=== PATIENT | female | born 1995 | race Caucasian/White ===

== ENCOUNTER 2023-05-01 22:22 | Inpatient (IN) | payer OTHER, SELFPAY ==
[2023-05-01] MEDS: OXYTOCIN 10 UNITS/ML VIAL (22:41)
[2023-05-01] MEDS: miSOPROStol 200 MCG TABLET 400 MCG SUBLINGUAL (22:45)
--- NOTE | 2023-05-01 22:56 | WPDOBADMIT ---
Obstetrics - Admit Note Admission Note: record reviewed. No pertinent additions to the history and/or any subsequent changes in the physical findings that are not consistent with the expected course of the were found. admit in active labor, SROM Additions to the history and/or subsequent changes in the physical findings follow. None.
--- NOTE | 2023-05-01 22:57 | PM.OBPRVD ---
OB - Delivery Note Procedure Delivery date: 05/01/23 Procedure: Induction method: None Delivery monitor: External FHT and External Uterine Route of delivery: Episiotomy description: None Laceration Description: None Specimen: Yes Quantitative Blood Loss (ml): 125 Anesthesia type: None Disposition: Floor [place] Baby Date of : 05/01/23 Time of : 22:39 Weeks of gestation at delivery: 37 gender: Male Weight (pounds): 6 Weight (ounces): 6 presentation: vertex position: Left Occiput Anterior Placenta delivery description: Spontaneous Cord Vessel Description: 3 Vessels and Clamped/Cut score one minute: 8 score five minutes: 9 Narrative: straight catheter urine obtained, sent for UDS
[2023-05-01 22:58] VITALS: BP 130/89; PULSE 84
[2023-05-01 23:00] VITALS: BP 139/83; PULSE 89
[2023-05-01 23:06] LABS: Basophils Absolute Auto 0.1 K/mm3 (0.0-0.1); Basophils Percent Auto 0.4 % (0.2-1.2); Eosinophils Absolute Auto 0.1 K/mm3 (0-0.3); Eosinophils Percent Auto 0.6 % (0-4.4); Hematocrit 35.1 % (37.0-47.0); Hemoglobin 11.4 g/dL (12.0-15.0); Immature Granulocyte Absolute 0.19 K/mm3 (0.00-0.031); Lymphocytes Absolute Auto 3.69 K/mm3 (0.9-3.2); Lymphocytes Percent Auto 19.7 % (18.3-44.2); Mean Corpuscular HGB Conc 32.5 g/dl (32-36); Mean Corpuscular Hemoglobin 28.5 pg (26-34); Mean Corpuscular Volume 87.8 fl (80-100); Mean Platelet Volume 9.4 fl (7.4-10.4); Monocytes Absolute Auto 1.4 K/mm3 (0.1-0.6); Monocytes Percent Auto 7.5 % (2.6-8.5); Neutrophils Absolute Auto 13.3 K/mm3 (1.3-6.7); Neutrophils Percent Auto 70.8 % (45.5-73.1); Platelet Count Result 300 k/mm3 (150-375); Red Cell Distribution Width 13.5 % (11.5-14.5); White Blood Count 18.7 K/mm3 (4.5-10.0)
[2023-05-01 23:15] VITALS: BP 133/81; PULSE 79
[2023-05-01 23:30] VITALS: BP 139/82; PULSE 82
[2023-05-01 23:35] LABS: Barbiturate Screen Urine Negative (Negative); Benzodiazepines Screen Urine Negative (Negative)
[2023-05-01 23:40] LABS: Amphetamine Screen Urine Negative (Negative); Methadone Screen Urine Negative (Negative); Opiate Screen Urine Negative (Negative); Phencyclidine Screen Urine Negative (Negative)
[2023-05-01 23:45] VITALS: BP 133/74; PULSE 57
[2023-05-01] MEDS: IBUPROFEN 600 MG TABLET PO (23:54)
[2023-05-01 23:57] VITALS: BMI 26.2
--- NOTE | 2023-05-01 23:58 | LDADM ---
This patient, Martha Rodriguez, was admitted to Labor/Delivery/Recovery 108 on 05/01/23 at 22:22. Plans for labor, pain management and were discussed with patient. Patient/family oriented to hospital policies and general routines including ID bracelet, bed and alarms, visiting hours, pain management, procedures, bathroom and other care routines, personal items, smoking policy, room service/diet and guest tray routines, infant security routines, and visiting hours. Patient/Family are encouraged to report perceived risks to care and to ask questions if they do not understand what they are told or what they should do. See OBIX for further documentation.
[2023-05-02] VITALS (13 sets, daily range): BP systolic 109–207; BP diastolic 57–174; PULSE 51–257; RESP 16–18; TEMP 36.7–37.3; O2SAT 97–99
[2023-05-02] MEDS: fentaNYL CITRATE INJ (*CRX) 100 MCG/2 ML VIAL 25 MCG IV PUSH
[2023-05-02 00:56] LABS: Cannabinoid Screen Urine Positive (Negative); Cocaine Screen Urine Negative (Negative)
[2023-05-02] MEDS: ACETAMINOPHEN 325 MG TABLET 650 MG PO ×2 (01:11→08:54)
--- NOTE | 2023-05-02 02:00 | OBPPTRN ---
Patient transferred to post room #287 via (wheelchair ). Support person present. Oriented to unit, room, information board, rooming in, admission packet and security measures. Patient verbalizes understanding.
[2023-05-02 05:20] LABS: Hematocrit 32.8 % (37.0-47.0); Hemoglobin 10.6 g/dL (12.0-15.0)
[2023-05-02 08:22] LABS: Hepatitis B Surface Antigen Negative (Negative)
[2023-05-02 08:39] LABS: HIV 1/2 Ab P24 Ag Result Negative (Negative); Hepatitis C Virus Antibody Negative (Negative)
[2023-05-02] MEDS: MULTIVIT/MIN/PREN/FOL AC/IRON TABLET 1 TAB PO (08:55)
--- NOTE | 2023-05-02 10:08 | P.PNOB_ITS ---
OB - PN: Subj Subjective Date/time seen: 05/02/23 10:08 pp day 1 no complaints OB - PN: Obj Data Labs 05/02/23 04:49 Labs: Laboratory Results - last 24 hr 05/01/23 05/02/23 05/02/23 23:00 04:49 07:27 WBC 18.7 H RBC 4.00 L Hgb 11.4 L 10.6 L Hct 35.1 L 32.8 L MCV 87.8 MCH 28.5 MCHC 32.5 RDW 13.5 Plt Count 300 MPV 9.4 Immature Gran % (Auto) 1.0 H Neut % (Auto) 70.8 Lymph % (Auto) 19.7 Mcdowell % (Auto) 7.5 Eos % (Auto) 0.6 Baso % (Auto) 0.4 Lymph # (Auto) 3.69 H Mcdowell # (Auto) 1.4 H Eos # (Auto) 0.1 Baso # (Auto) 0.1 Abs Immat Gran (auto) 0.19 H Absolute Neuts (auto) 13.3 H Absolute Nucleated RBC 0.0 Nucleated RBC % 0.0 Urine Opiates Screen Negative Urine Methadone Screen Negative Ur Barbiturates Screen Negative Ur Phencyclidine Scrn Negative Ur Amphetamine Screen Negative U Benzodiazepines Scrn Negative Urine Cocaine Screen Negative U Cannabinoids Screen Positive A Hep Bs Antigen Negative Hepatitis C Ab Screen Negative HIV 1&2 Ab/P24 Ag 4thGn Negative Blood Type O Positive Antibody Screen Negative OB - PN A/P Plan day: 1 Plan: routine care Time Spent With Patient Time: Total time spent is greater than 50% in coordination of care (as documented) at patient's floor/unit and/or counseling patient: Review of Systems Review of Systems: All systems reviewed & are unremarkable except as noted in HPI and below Exam Const: General: cooperative, healthy appearing and comfortable Chest: Chest palpation & inspection: normal inspection of the chest Resp: Effort & Inspection: normal respiratory effort Cardio: Rate: regular rate Rhythm: regular rhythm GI: Other: gravid Back/Spine/Pelvis: Back: no CVA tenderness Skin: General skin exam: normal color Extrem: General: normal to inspection Psych: Appearance: grossly normal
--- NOTE | 2023-05-02 11:51 | PCCCNOTE ---
Care Coordination. Patient referred to CC for positive marijuana UDS (baby meconium pending) and not having custody of other 2 children. Met with pt. and Wilfrid MOISE, at bedside. This is their 2nd kid together. Their previous child is currently in foster care (Ynes Cardoso) who is about a year old. She reports currently working with Nancy, catalytic case operator, out of [facility]. Pt. reports her first child she no longer has any rights to. Pt. plans to go home with Wilfrid MOISE, and his mother. She reports having all necessary baby supplies. She is not setup with [facility], but reports she will setup. Spoke with Juan Jose Bradford from [facility] hotline and he took pt.'s situation as a report Intake ID#[id number]. A [facility] special investigator should be out within 24 hours to see pt. and make a plan. RNEvita, aware. They will find out from worker if can be released to mother or not. Will follow.
[2023-05-02] MEDS: IBUPROFEN 600 MG TABLET PO ×2 (11:52→19:35)
--- NOTE | 2023-05-02 14:00 | PC.NURSE ---
PT introductions made and plan of care discussed per post , pain management, bottle feeding, daily care activities. PT sole recipient of such instructions and no barriers to learning identified at this time. PT received such instructions per one to one discussion, mom baby care guide and demonstrations this shift. PT verbalized understanding of such care.
--- NOTE | 2023-05-02 14:00 | PC.NURSE ---
DCFS worker here to discuss situation with pt regarding loss of custody of one child and one child in the foster care system. DCFS worker discussed the possible custody of this child to [facility] on Thursday. PT verbalized understanding and had shared that her case folder and import clerk had stated she would be taking the infant home. DCFS worker took note of that and further decisions will be made on Thursday. PT will be discharged to a [facility]B status on Thursday05/03/2023 and infant is to remain a pt at [facility] till Thursday. Pt is allowed to care for and have visitation in her room till Thursday when DCFS returns.
--- NOTE | 2023-05-02 14:02 | PC.NURSE ---
0628 Sherif Ventura, Employee Health RN, called to advise patient's nurse (Kati Quick RN) that there had been an incident report put in last night by Jacques Callahan RN regarding Micheline Miller RN, who had already went home for the national [employer] member. Due to the report and exposure of amniotic fluid that Micheline Miller RN had, the patient needs labs drawn this morning. Sherif Ventura RN to put in the orders and will watch for the results and call. 0910 Sherif Ventura RN called and labs were negative, patient's RN will advise pt and Sherif Ventura RN will notify Guicho Miller RN.
[2023-05-03] MEDS: IBUPROFEN 600 MG TABLET PO ×2 (03:40→14:23)
--- NOTE | 2023-05-03 08:02 | PM.OBPNVD ---
OB - PN: Subj Subjective Date/time seen: 05/03/23 08:02 pp day 2 baby may be going into dcfs custody pt doing well no complaints OB - PN: Obj Data Labs 05/02/23 04:49 Labs: Laboratory Results - last 24 hr 05/02/23 07:27 Hep Bs Antigen Negative Hepatitis C Ab Screen Negative HIV 1&2 Ab/P24 Ag 4thGn Negative OB - PN A/P Plan day: 2 Plan: routine care and discharge home Time Spent With Patient Time: Total time spent is greater than 50% in coordination of care (as documented) at patient's floor/unit and/or counseling patient: Review of Systems Review of Systems: All systems reviewed & are unremarkable except as noted in HPI and below Exam Const: General: cooperative, healthy appearing and comfortable Chest: Chest palpation & inspection: normal inspection of the chest Resp: Effort & Inspection: normal respiratory effort Cardio: Rate: regular rate Rhythm: regular rhythm GI: Other: soft Skin: General skin exam: normal color Neuro: General: patient oriented x3 Extrem: Right lower extremity: normal to inspection Left lower extremity: normal to inspection
--- NOTE | 2023-05-03 08:06 | PM.OBDSVD ---
DS: Admitting Diagnosis Discharge Date 05/03/23 Admitting Diagnosis labor DS: Discharge Diagnosis Discharge Diagnosis (1) Vaginal delivery: Code(s): O80 - Encounter for full-term uncomplicated delivery Status: Acute OB - DS: Summary OB Procedures : None OB Procedures Intrapartum: Spontaneous Vag Delivery OB Procedures: : None Time Spent with Patient Time attestation: Total time spent providing and/or coordinating discharge services: DS: Data Data Completed and Pending Pending studies at discharge: Pending at discharge 05/02/23 03:41 Surgical [PTH] Routine Labs on day of discharge: Labs from last 24 hours 05/02/23 07:27 Hep Bs Antigen Negative Hepatitis C Ab Screen Negative HIV 1&2 Ab/P24 Ag 4thGn Negative Discharge Plan Discharge Attending physician on discharge: Phill Sellers Discharging Clinician: Zita Villalpando Patient Disposition: Home, Self-Care Activity: pelvic rest Diet: regular Patient Instructions: Antibiotic Form Stand Alone Forms: General Discharge Information Follow-up/Referrals: Zita Villalpando CNM [Certified Nurse Snack Stewardess] - 4 Weeks Discharge Medications: New ibuprofen 600 mg Tablet 600 mg PO Q6H PRN (Reason: Cramping) Qty: 30 0RF Continued Complete 30-975 mg-mcg Tablet 1 tablet PO DAILY Date of admission: 05/01/23 22:22 Primary Care Provider: PHYSICIAN,INDUSTRIAL MAINTENANCE REPAIRER Admitting Provider: Phill Sellers Attending physician on admission: Phill Sellers Condition: Stable
[2023-05-03] MEDS: DOCUSATE SODIUM 100 MG CAPSULE PO ×2 (08:30→17:23)
[2023-05-03] MEDS: ACETAMINOPHEN 325 MG TABLET 650 MG PO ×2 (08:30→17:23)
[2023-05-03 08:35] VITALS: BP 130/85; PULSE 81; RESP 16; TEMP 36.2; O2SAT 100
--- NOTE | 2023-05-03 17:58 | PC.NURSE ---
[id number] Patient was discharged and is now a No Care Bed, dietary has been notified. Patient's baby is not being discharged until tomorrow, DCFS to see baby tomorrow. Patient wishes to stay with her baby over night.
[2023-05-04 12:40] LABS: Rapid Plasma Reagin Non-Reactive (NonReactive)
[2023-05-04 13:15] VITALS: BP 137/90; PULSE 78; RESP 18; TEMP 36.4; O2SAT 99
== END 2023-05-03 17:53 | disposition home or self-care (01) | DRG 560 ==
LOC: ANHLDR 22:45 → ANHOB2 05-02 02:07
PROVIDERS: Advanced Practice Midwife; Admitting Provider Obstetrics & Gynecology; Visit Provider Obstetrics & Gynecology
DX: O77.0 Labor and delivery complicated by meconium in amniotic fluid (principal); Z37.0 Single live birth; Z3A.37 37 weeks gestation of pregnancy
CPT/HCPCS: 36415; 80307; 85014; 85018; 85025; 86592; 86703; 86803; 86850; 86900; 86901; 87340; 88307; A9270; G0432; J2590; J3010